=== PATIENT | male | born 1995 | race Caucasian/White ===

== ENCOUNTER 2024-09-07 13:54 | Emergency (ER) | payer OTHER ==
[~2024-09-07] VITALS: Ht 175.3 cm; Wt 68.9 kg
[2024-09-07] MEDS ORDERED: TOPAMAX25 MG PO (14:03)
[2024-09-07 14:32] VITALS: BP 107/58
== END 2024-09-07 14:34 | disposition home or self-care (01) ==
LOC: ED 13:54
DX: G40.409 Other generalized epilepsy and epileptic syndromes, not intractable, without status epilepticus (principal); Z04.1 Encounter for examination and observation following transport accident; Z79.899 Other long term (current) drug therapy; V48.5XXA Car driver injured in noncollision transport accident in traffic accident, initial encounter
CPT/HCPCS: 99284